=== PATIENT | male | born 1980 | race Two or more races ===

== ENCOUNTER 2019-06-27 22:56 | Emergency (ER) | payer MEDICAID ==
[~2019-06-27] VITALS: Ht 177.8 cm; Wt 72.6 kg
[2019-06-28 00:51] VITALS: BP 146/84
== END 2019-06-28 01:27 | disposition home or self-care (01) ==
LOC: ER 22:59
DX: G43.909 Migraine, unspecified, not intractable, without status migrainosus (principal)
CPT/HCPCS: 70450